=== PATIENT | female | born 1925 | race Caucasian/White ===

== ENCOUNTER 2017-05-26 14:00 | Outpatient (CLI) | payer MEDICARE, OTHER ==
[2017-05-26 19:27] LABS: BASOPHILS % (AUTO) 0.7 %; EOSINOPHILS # (AUTO) 0.1 10^3/uL (0.0-0.7); EOSINOPHILS % (AUTO) 2.4 %; HCT - HEMATOCRIT 40.4 % (37.0-47.0); HGB - HEMOGLOBIN 13.6 g/dL (12.0-16.0); LYMPHOCYTES % (AUTO) 22.5 %; MEAN CORPUSCULAR HEMOGLOBIN 33.2 pg (27.0-31.0); MEAN CORPUSCULAR HGB CONC 33.7 g/dL (32.0-36.0); MEAN CORPUSCULAR VOLUME 98.6 fL (81.0-99.0); MEAN PLATELET VOLUME 9.6 fL (7.9-10.8); MONOCYTES # (AUTO) 0.6 10^3/uL (0.0-1.0); MONOCYTES % (AUTO) 13.3 %; NEUTROPHILS # (AUTO) 2.8 10^3/uL (1.5-6.6); NEUTROPHILS % (AUTO) 61.1 %; NUCLEATED RED BLOOD CELLS AUTO 0.1 /100WBC; RED CELL DISTRIBUTION WIDTH 13.8 % (12.0-15.0); UNCORRECTED WHITE BLOOD COUNT 4.6 x10^3/uL; WHITE BLOOD COUNT 4.6 x10^3/uL (4.8-10.8)
[2017-05-26 19:41] LABS: ALBUMIN/GLOBULIN RATIO 1.4 (1.0-2.2); BILIRUBIN,TOTAL 0.7 mg/dL (0.2-1.0); BUN - BLOOD UREA NITROGEN 28 mg/dL (6-20); CALCIUM 9.3 mg/dL (8.5-10.3); CARBON DIOXIDE - CO2 26 mmol/L (21-32); CHLORIDE 104 mmol/L (101-111); GFR - MDRD 52 (>89); GLUCOSE 113 mg/dL (70-100); POTASSIUM 4.4 mmol/L (3.5-5.0); SODIUM 138 mmol/L (135-145); TOTAL PROTEIN 7.2 g/dL (6.7-8.2)
== END 2017-05-26 14:01 | disposition home or self-care (01) ==
LOC: LAB.WCP 14:00
PROVIDERS: ATTEND Physician Assistant Medical
DX: R53.83 Other fatigue (principal)
CPT/HCPCS: 36415; 80053; 84443; 85025

== ENCOUNTER 2017-06-09 11:16 | Outpatient (CLI) | payer MEDICARE, OTHER ==
--- NOTE | 2017-06-09 12:28 | Ultrasound Report ---
RIGHT UPPER QUADRANT ULTRASOUND: 06/09/2017 CLINICAL INDICATION: Elevated liver enzymes. TECHNIQUE: Real-time scanning was performed with sales representative door to door static images obtained. FINDINGS: The liver measures 11.2 cm. An 11-mm cyst is incidentally noted in the right lobe. No so lid hepatic lesion or intrahepatic biliary dilatation is present. The common bile duct measures 6 mm . The gallbladder is normal. The right kidney measures 12.8 cm, and demonstrates a 4.4 cm cyst. No hydronephrosis or solid renal mass is seen. No free fluid is seen. IMPRESSION: INCIDENTAL HEPATIC AND RENAL CYSTS. NO EVIDENCE OF CHOLELITHIASIS OR BILIARY OBSTRUCTIO N. NO SUSPICIOUS SOLID HEPATIC MASS. JOB #: [id number] EXT JOB #:[id number]
== END 2017-06-09 11:17 | disposition home or self-care (01) ==
LOC: DI 11:16
PROVIDERS: ATTEND Physician Assistant Medical
DX: R74.8 Abnormal levels of other serum enzymes (principal)
CPT/HCPCS: 76705